=== PATIENT | male | born 1990 | race African-American/Black ===

== ENCOUNTER → 2019-02-23 17:16 | Outpatient (ROUT) | payer OTHER, SELFPAY ==
[2019-02-23 18:51] LABS: Urine N gonorrhoeae NOT DETECTED
[2019-02-23 19:16] LABS: Urine Chlamydia NOT DETECTED
== END ==
PROVIDERS: Visit Provider Physician Assistant
DX: Z11.3 Encounter for screening for infections with a predominantly sexual mode of transmission (principal)
CPT/HCPCS: 87491; 87591

== ENCOUNTER 2019-05-06 12:24 | Emergency (ER) | payer OTHER, SELFPAY ==
[2019-05-06 12:38] VITALS: BP 131/82; PULSE 58; RESP 16; TEMP 36.6; O2SAT 99; BMI 21.1
--- NOTE | 2019-05-06 13:01 | ED_ITS ---
HPI - Wound/Laceration <GAUTAM Marie - Last Filed: 05/06/19 13:49> General Chief Complaint: Wound/Laceration Stated Complaint: Fell and Cut Right Hand Time Seen by Provider: 05/06/19 12:35 Source: patient Mode of arrival: Ambulatory Limitations: no limitations History of Present Illness HPI narrative: The patient is a vaccinated 29-year-old male who presents with a chief complaint of lacerations to the dorsum of his right hand when he tripped and fell a week ago. He states that he cut his fingers on concrete, he wants to have a wound check to make sure they're not infected. Denies any fevers, reduced range of motion, redness purulent discharge etcetera. 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 He denies any other injuries from the fall. Related Data Previous Rx's Medication Instructions Recorded azithromycin 250 mg tablet 1,000 mg PO ONCE #4 tab 02/23/19 Allergies Allergy/AdvReac Type Severity Reaction Status Date / Time No Known Drug Allergies Allergy Verified 02/23/19 16:45 Review of Systems <GAUTAM Marie - Last Filed: 05/06/19 13:49> Review of Systems Narrative: GENERAL: Denies chills, fatigue, malaise, fever, sweats. HEENT: Denies sinus pain, ear pain, sore throat, difficulty swallowing, dizziness. RESPIRATORY: Denies dyspnea, cough, wheezing, hemoptysis, sputum. CARDIOVASCULAR: Denies chest pain, palpitations, orthopnea, edema, GASTROINTESTINAL: Denies nausea, vomiting, abdominal pain, diarrhea, constipation, melena. : Denies dysuria, frequency, incontinence, hematuria, urinary retention. MUSCULOSKELETAL: See HPI SKIN: See HPI NEUROLOGIC: Denies weakness, headache, numbness, change in speech, confusion, seizures, incoordination. PSYCHIATRIC: No concerning psychosocial issues. 12 point review of systems is negative except for those stated above Patient History <GAUTAM Marie - Last Filed: 05/06/19 13:49> Substance Use Type: does not use Exam <GAUTAM Marie - Last Filed: 05/06/19 13:49> Narrative Exam Narrative: GENERAL: This is a well-nourished, well-developed patient, in no acute distress HEAD: Atraumatic. Normocephalic. No temporal or scalp tenderness. EYES: Pupils equal round and reactive. Extraocular motions intact. No scleral icterus. No injection or drainage. ENT: Nose without bleeding, purulent drainage or septal hematoma. Throat without erythema, tonsillar hypertrophy or exudate. Uvula midline. Airway patent. NECK: Trachea midline. No JVD or lymphadenopathy. Supple, nontender, no mening eal signs. CARDIOVASCULAR: Regular rate and rhythm RESPIRATORY: No cough. No increased respiratory effort. No accessory muscle use.. EXTREMITIES: Full range of motion noted all fingers right hand. Positive radial pulse right hand. Capillary refill less than 2 seconds all fingers right hand. Skin exam is noted. Able to flex and extend right fingers against resistance. BACK: Nontender without deformity or crepitance. No flank tenderness. NEURO: AOx3. SKIN: 1 cm abrasion noted on dorsum of left right 3rd finger, 1 cm abrasion noted dorsum of right 4th finger, 0.5 cm abrasion noted on dorsum right 2nd finger. No drainage. Healthy skin, granulation tissue noted. No obvious muscle or tendon involvement. Well-healing. No spreading erythema. Initial Vital Signs Initial Vital Signs: Vital Signs Temperature 97.8 F 05/06/19 12:38 Pulse Rate 58 L 05/06/19 12:38 Respiratory Rate 16 05/06/19 12:38 Blood Pressure 131/82 05/06/19 12:38 Pulse Oximetry 99 05/06/19 12:38 <Pan Lara MD - Last Filed: 05/06/19 21:14> Initial Vital Signs Initial Vital Signs: Vital Signs Temperature 97.8 F 05/06/19 12:38 Pulse Rate 58 L 05/06/19 12:38 Respiratory Rate 16 05/06/19 12:38 Blood Pressure 131/82 05/06/19 12:38 Pulse Oximetry 99 05/06/19 12:38 Course <CHARLEE Marie-BC - Last Filed: 05/06/19 13:49> Vital Signs Vital signs: Vital Signs - 8 hr 05/06/19 12:38 Temperature 97.8 F Pulse Rate 58 L Respiratory Rate 16 Blood Pressure 131/82 Pulse Oximetry 99 <Pan Lara MD - Last Filed: 05/06/19 21:14> Vital Signs Vital signs: Vital Signs - 8 hr 05/06/19 12:38 Temperature 97.8 F Pulse Rate 58 L Respiratory Rate 16 Blood Pressure 131/82 Pulse Oximetry 99 MDM - Wound/Laceration <CHARLEE Marie- - Last Filed: 05/06/19 13:49> MDM Narrative Medical decision making narrative: The patient is a 29-year-old male who presents requesting a wound check for a a wound that is a week old on his right hand. Resulting from fall on cement. He is neurovascularly intact, has no signs or symptoms of infection, appears to be well healing. States his tetanus is up-to-date. Wound was dressed and cleansed by nursing. Encourage PCP follow-up and monitoring for decreased range of motion etcetera. Patient has no questions or concerns upon discharge and states understanding of return precautions as well as follow-up care. Discharge Plan Departure Patient Disposition: Home Clinical Impression: Laceration Discharge Date/Time: 05/06/19 13:34 Instructions: DI for Abrasion Activity Restrictions/Additional Instructions: Please watch for signs and symptoms of infection such as purulent discharge, redness decreased range of motion Please follow-up with primary care provider Please come back to the emergency department for any acute concerns Prescriptions: No Action azithromycin 250 mg tablet 1,000 mg PO ONCE Qty: 4 RF: 0 Referrals: [facility] [Provider Group]
== END 2019-05-06 13:34 | disposition home or self-care (01) ==
PROVIDERS: Emergency Provider Nurse Practitioner Family
DX: S61.411A Laceration without foreign body of right hand, initial encounter (principal); W01.0XXA Fall on same level from slipping, tripping and stumbling without subsequent striking against object, initial encounter
CPT/HCPCS: 99282; 99283

== ENCOUNTER 2019-07-09 04:22 | Emergency (ER) | payer OTHER, SELFPAY ==
[2019-07-09 04:52] VITALS: BP 130/87; PULSE 65; RESP 15; TEMP 36.6; O2SAT 99; BMI 21.7
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
[2019-07-09] MEDS: KETOROLAC 60 MG/2 ML VIAL 30 MG IV (05:42)
[2019-07-09] MEDS: SODIUM CHLORIDE 0.9% 1,000 ML 1000 ML IV (05:43)
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
[2019-07-09 05:55] LABS: Add Manual Diff / Slide Review NO; Basophils Absolute Auto 0 /uL (0-100); Basophils Percent Auto 0.5 % (0-2); Eosinophils Absolute Auto 0 /uL (0-450); Eosinophils Percent Auto 0.4 % (2-4); Hemoglobin 15.8 g/dL (13.5-17.5); Lymphocytes Absolute Auto 1800 /uL (1100-4500); Lymphocytes Percent Auto 28.1 % (25-40); Mean Corpuscular HGB Conc 34.2 % (30-36); Mean Corpuscular Hemoglobin 29.8 PG (26-34); Mean Corpuscular Volume 87.1 fL (80-100); Monocytes Absolute Auto 500 /uL (0-900); Monocytes Percent Auto 7.8 % (3-14); Neutrophils Absolute Auto 3900 /uL (1500-7000); Neutrophils Percent Auto 63.2 % (50-75); Platelet Count 299 X10^3/uL (150-400); Red Blood Cell Count 5.28 X10^6/uL (4.5-5.9); Red Cell Distribution Width 12.7 % (11.6-14.8); White Blood Cell Count 6.2 X10^3/uL (4.5-11.0)
[2019-07-09 06:02] LABS: INR 1.2 (0.9-1.3); Prothrombin Time 13.6 SECONDS (10.1-12.7)
[2019-07-09 06:04] LABS: PTT Partial Thromboplastin Tim 24 SECONDS (26.4-36.2)
[2019-07-09 06:05] LABS: Ethanol (ETOH) < 10 mg/dL
[2019-07-09 06:06] LABS: Alanine Aminotransferase 21 IU/L (<50); Albumin 4.5 g/dL (3.5-5.0); Albumin Globulin Ratio 1.4 (1.0-2.8); Alkaline Phosphatase 52 U/L (38-126); Aspartate Aminotransferase 36 IU/L (17-59); Bilirubin Total 0.7 mg/dL (0.2-1.3); Blood Urea Nitrogen 12 mg/dL (9-20); Calcium 9.3 mg/dL (8.4-10.2); Carbon Dioxide 27 mmol/L (22-32); Chloride 103 mmol/L (98-107); Creatine Kinase 390 U/L (55-170); Estimated Glomerular Filt Rate > 60.0 mL/min (>60); Globulin 3.2 g/dL (1.7-4.1); Glucose 97 mg/dL (70-100); HEMOLYSIS < 15 (0-50); Lipase 45 U/L (23-300); Potassium 4.1 mmol/L (3.4-5.1); Sodium 141 mmol/L (137-145); Total Protein 7.7 g/dL (6.3-8.2)
[2019-07-09 06:07] LABS: Lactate (Lactic Acid) 0.9 mmol/L (0.7-2.1)
[2019-07-09 06:22] LABS: CKMB % Relative Index 0.4 % (1.5-5.0); Creatine Kinase MB 1.62 ng/mL (<2.37)
[2019-07-09 06:23] LABS: Troponin I < 0.012 ng/mL (0.01-0.034)
[2019-07-09 06:30] VITALS: BP 123/83; PULSE 72; RESP 15; O2SAT 98
[2019-07-09 08:33] VITALS: BP 120/76; PULSE 66; RESP 15; O2SAT 98
== END 2019-07-09 08:34 | disposition home or self-care (01) ==
PROVIDERS: Emergency Provider Emergency Medicine
DX: S02.42XA Fracture of alveolus of maxilla, initial encounter for closed fracture (principal); S03.2XXA Dislocation of tooth, initial encounter; S16.1XXA Strain of muscle, fascia and tendon at neck level, initial encounter; M54.5 Low back pain; R51 Headache; R00.1 Bradycardia, unspecified; S20.312A Abrasion of left front wall of thorax, initial encounter; S20.311A Abrasion of right front wall of thorax, initial encounter; Y04.2XXA Assault by strike against or bumped into by another person, initial encounter
CPT/HCPCS: 36415; 70450; 70486; 71046; 72100; 72125; 80053; 80320; 81003; 82550; 82553; 83605; 83690; 84484; 85025; 85610; 85730; 93005; 96361; 96374; 99285; J1885